=== PATIENT | male | born 1970 | race Hispanic/Latino ===

== ENCOUNTER 2022-02-05 07:48 | Observation (INO) | payer BC ==
[2022-02-03 15:24] LABS: BASOPHILS % 0.4 % (0.0-1.0); EOSINOPHILS # (AUTO) 0.1 (0.0-0.4); EOSINOPHILS % 1.5 % (0.0-6.0); HEMATOCRIT 46.1 % (38.2-49.6); HEMOGLOBIN 15.9 g/dL (14.0-18.0); LYMPHOCYTES # (AUTO) 1.8 (1.0-3.2); LYMPHOCYTES % 27.1 % (18.0-39.1); MEAN CORPUSCULAR HEMOGLOBIN 27.9 pg (28-32); MEAN CORPUSCULAR HGB CONC 34.5 g/dL (31-35); MEAN CORPUSCULAR VOLUME 80.9 fL (81-99); MONOCYTES # (AUTO) 0.6 (0.2-0.8); MONOCYTES % 9.3 % (4.4-11.3); NEUTROPHILS # (AUTO) 4.1 (2.1-6.9); NEUTROPHILS % 61.1 % (38.7-80.0); PLATELET COUNT 227 x10e3/uL (140-360); RED CELL DISTRIBUTION WIDTH 13.6 % (11.7-14.4)
[2022-02-03 17:32] LABS: ANION GAP 16.1 mmol/L (8-16); CALCIUM 8.9 mg/dL (8.4-10.2); CREATININE, SERUM 0.98 mg/dL (0.72-1.25); POTASSIUM 4.1 mmol/L (3.5-5.1)
[~2022-02-05] VITALS: Ht 165.1 cm; Wt 82.6 kg
[~2022-02-05 07:48] MED LIST: FAMOTIDINE20 MG PO; GLIMEPIRIDE4 MG PO; GLIPIZIDE5 MG PO; LISINOPRIL2.5 MG PO; MONTELUKAST SOD10 MG PO
[2022-02-05] MEDS ORDERED: LIDOCAINE JELLY 2% 10ML URO-JET ONE (09:59)
[2022-02-05] MEDS ORDERED: BUPIVACAINE 0.25% 30ML SDV ONE (09:59)
[2022-02-05] MEDS ORDERED: LIDOCAINE 2% /EPINEPHRINE 20 ML SDV INJ ONE (09:59)
[2022-02-05] MEDS ORDERED: ONDANSETRON HCL INJ 2MG/ML 2ML 2 MG/ML VIAL IV PRN (11:00)
[2022-02-05] MEDS ORDERED: NALOXONE HCL INJ 0.4 MG/ML AMP IV PRN (11:00)
[2022-02-05] MEDS: HYDROMORPHONE 0.2MG/ML-SOD CHL 30ML PCA SYRINGE IV PRN (11:27)
[2022-02-05 12:13] VITALS: BP 108/82
[2022-02-05 12:21] VITALS: BP 108/82
[2022-02-05 12:26] VITALS: BP 108/82
[2022-02-05] MEDS ORDERED: ACETAMINOPHEN 1000 MG/100 ML IV ONE (12:51)
[2022-02-05] MEDS ORDERED: PROPOFOL IV EMULSION 10 MG/ML 20 ML VIAL ONE (12:51)
[2022-02-05] MEDS ORDERED: PHENYLEPHRINE HCL 1% 10 MG/ML VIAL ONE (12:51)
[2022-02-05] MEDS ORDERED: DEXAMETHASONE SOD PHOS INJ 4 MG/ML SDV ONE (12:51)
[2022-02-05] MEDS ORDERED: ONDANSETRON HCL INJ 2MG/ML 2ML 2 MG/ML VIAL ONE (12:51)
[2022-02-05] MEDS ORDERED: EYE LUBRICANT OPTH OINT 3.5GM TUBE OP ONE (12:51)
[2022-02-05] MEDS ORDERED: KETOROLAC TROMETHAMINE 30 MG/ML VIAL ONE (12:51)
[2022-02-05] MEDS ORDERED: LIDOCAINE HCL 2% LOCAL INJ 5 ML SDV VIAL INJ ONE (12:51)
[2022-02-05] MEDS ORDERED: POVIDONE IODINE 0.05% 0.05 % ML PO ONE (12:51)
[2022-02-05] MEDS ORDERED: SEVOFLURANE INHAL SOLN 250 ML PEN BTL ONE (12:51)
[2022-02-05] MEDS: SODIUM CHLORIDE 0.9% 1000ML 1,000 ML IV SCH (13:11)
[2022-02-05] MEDS ORDERED: MIDAZOLAM HCL 2 MG/2 ML VIAL ONE (13:32)
[2022-02-05] MEDS ORDERED: FENTANYL CITRATE/PF 100MCG/2 ML INJ ONE (13:32)
[2022-02-05] MEDS ORDERED: PNEUMOCOCCAL VACCINE POLYVALENT 23 MCG/0.5 ML VIAL IM ONE (14:00)
[2022-02-05] MEDS ORDERED: ACETAMINOPHEN 1000 MG/100 ML IV PRN (15:00)
[2022-02-05 16:38] VITALS: BP 101/67
[2022-02-05 19:45] VITALS: BP 109/71
[2022-02-05 20:15] VITALS: BP 109/71
[2022-02-06] VITALS (7 sets, daily range): BP systolic 105–126; BP diastolic 62–81
[2022-02-06] MEDS: SODIUM CHLORIDE 0.9% 1000ML 1,000 ML IV SCH ×3 (00:04→18:01)
[2022-02-06] MEDS: HYDROMORPHONE 0.2MG/ML-SOD CHL 30ML PCA SYRINGE IV PRN (05:11)
[2022-02-06 05:31] LABS: CALCIUM 7.9 mg/dL (8.4-10.2); CREATININE, SERUM 0.93 mg/dL (0.72-1.25)
[2022-02-06] MEDS ORDERED: NON-FORMULARY MEDICATION (Glimepiride 4 MG) PO SCH (09:00)
[2022-02-06] MEDS: PANTOPRAZOLE SOD 40 MG TABEC PO SCH (11:06)
[2022-02-06] MEDS: GLIMEPIRIDE 2 MG TAB PO SCH (12:45)
[2022-02-06] MEDS: LISINOPRIL 2.5 MG TAB PO SCH (12:45)
[2022-02-06] MEDS ORDERED: HYDROMORPHONE 1MG/1ML INJ IV PRN (17:00)
[2022-02-06] MEDS: DOCUSATE SODIUM 100 MG CAP PO SCH (17:00)
[2022-02-06] MEDS ORDERED: TUMS ULTRA400 MG PO (18:05)
[2022-02-06] MEDS ORDERED: CALCIUM CARBONATE 500 MG CHEWABLE TABS PO PRN (18:15)
[2022-02-06] MEDS: TRIAMCINOLONE ACET 0.1% CREAM 15 GM TUBE TOP SCH (20:56)
[2022-02-06] MEDS: HYDROCODONE/APAP 7.5MG-325MG 1 EA TAB PO PRN (21:32)
[2022-02-07 00:05] VITALS: BP 132/76
[2022-02-07 00:31] VITALS: BP 132/76
[2022-02-07] MEDS: HYDROCODONE/APAP 7.5MG-325MG 1 EA TAB PO PRN (01:17)
[2022-02-07 04:00] VITALS: BP 113/71
[2022-02-07] MEDS: SODIUM CHLORIDE 0.9% 1000ML 1,000 ML IV SCH ×2 (05:02→16:43)
[2022-02-07] MEDS: PANTOPRAZOLE SOD 40 MG TABEC PO SCH (05:04)
[2022-02-07 08:00] VITALS: BP_SYST 113; BP_DIAS 71; BP_DIAS 78
[2022-02-07] MEDS: LISINOPRIL 2.5 MG TAB PO SCH (09:21)
[2022-02-07] MEDS: DOCUSATE SODIUM 100 MG CAP PO SCH ×2 (09:21→17:10)
[2022-02-07] MEDS: GLIMEPIRIDE 2 MG TAB PO SCH (09:21)
[2022-02-07] MEDS: TRIAMCINOLONE ACET 0.1% CREAM 15 GM TUBE TOP SCH ×2 (09:22→15:56)
[2022-02-07 12:00] VITALS: BP 121/81
[2022-02-07 16:00] VITALS: BP 112/76
== END 2022-02-07 18:09 | disposition home or self-care (01) ==
LOC: OR 07:48 → PACU V 10:59 → MED/SURG 12:18
PROVIDERS: ADMIT Surgery; ATTEND Surgery
DX: K64.8 Other hemorrhoids (principal); Z01.818 Encounter for other preprocedural examination; Z20.822 Contact with and (suspected) exposure to COVID-19; I10 Essential (primary) hypertension; E11.9 Type 2 diabetes mellitus without complications
CPT/HCPCS: 36415 ×4; 46260; 46700; 80048 ×2; 82948 ×3; 85025; 88304; 88342; 90732; 93005; G0378 ×3; J0131; J0694 ×3; J1100; J1885; J2001 ×2; J2250; J2370; J2405; J2704; J3010; J7030 ×3; S0164 ×2